=== PATIENT | male | born 1940 | race Caucasian/White ===

== ENCOUNTER 2017-04-25 13:29 | Emergency (ER) | payer OTHER ==
[~2017-04-25] VITALS: Ht 172.7 cm; Wt 81.6 kg
[~2017-04-25 13:29] MED LIST: Aldactone 25 MG TABLET PO; BICARSIM FORTE125 MG; CARDIZEM PO; CARVEDILOL12.5 MG PO; GLIMEPIRIDE1 MG; Imdur 30MG PO; LASIX20 MG PO; LOSARTAN POTASS50 MG; METFORMIN HCL500 MG; PROTEINEX1 TA1 PO; SPIRONOLACTONE50 MG; TOPROL XL25 M1
[2017-04-25] MEDS ORDERED: CENTRUM COMPLE1 EACH (14:14)
[2017-04-25] MEDS ORDERED: CLONAZEPAM0.5 MG (14:15)
[2017-04-25] MEDS ORDERED: OMEGA DHA92 MG (14:15)
== END 2017-04-25 18:52 | disposition home or self-care (01) ==
LOC: ER 13:29
DX: M54.2 Cervicalgia (principal); R06.02 Shortness of breath; D69.6 Thrombocytopenia, unspecified